=== PATIENT | male | born 1960 | race Caucasian/White ===

== ENCOUNTER → 2021-05-13 12:44 | Outpatient (CLI) | payer OTHER, SELFPAY ==
--- NOTE | ~2021-05-13 | CT_ITS ---
EXAMINATION: CT abdomen pelvis wo/w con DATE: 05/13/2021 13:42 INDICATION: Hematuria. TECHNIQUE: Computed tomography (CT) of the abdomen and pelvis was performed without and subsequently with 130 cc Omnipaque 350 intravenous contrast. Automated exposure control and iterative reconstructi on technique were employed. Exam dose: 1649.96 mGy-cm total exam DLP. COMPARISON: None. FINDINGS: Nonspecific 4 mm posterosuperior middle lobe nodule (series 4 image 1). Minimal bilateral dependent lower lobe atelectasis. Normal heart size. No pericardial or pleural effusion. Status post cholecystectomy. No hepatic, splenic, pancreatic or adrenal space-occupying mass lesion. No bile duct or pancreatic duct dilatation. No pancreatic calcification. 1.7 x 2 cm lateral lower pole left renal cyst with minimal wall calcification. Additional scattered s maller left renal cysts. There are 3 small nonobstructing right renal calculi, the largest measuring up to 4 mm. There are 2 nonobstructing left renal small calculi, measuring up to 3.4 mm. No ureteral calculus or hydroureteronephrosis. The urinary bladder is unremarkable. There is prostate enlargement and prominent calcification. There is atherosclerotic calcification of the abdominal aorta and iliac arteries but no abdominal aor tic aneurysm. No intraperitoneal or retroperitoneal or pelvic mass lesion or adenopathy or ascites is evident. Ther e are some shoddy nonenlarged right lower quadrant nodes measuring up to 7.5 x 9.5 mm. 3.7 x 4.8 cm distal duodenal diverticulum with fluid level. Approximately 6 cm segment of up to 4.3 cm dilated small bowel with air-fluid level is noted in the l eft lower quadrant, with sutures, suggesting this is an area of small bowel anastomosis. Mild colon diverticulosis; no CT evidence of diverticulitis. No evidence of appendicitis. No bowel ob struction, bowel wall thickening, pneumatosis or intraperitoneal free air. Wide umbilical hernia containing nonobstructed small bowel. Degenerative changes of the thoracic and lumbar spine including moderately prominent degenerative dis ease and minimal retrolisthesis at L4-5. IMPRESSION: Postoperative change of the small bowel; no bowel obstruction is evident Prominent distal duodenal diverticulum Mild colonic diverticulosis; no CT evidence of diverticulitis Bilateral nonobstructive nephrolithiasis; no ureteral calculus or hydroureteronephrosis Renal cysts Prominent prostate enlargement and calcification Reviewed, dictated and finalized at [facility]. Reviewed, dictated and finalized at [facility]. IMPRESSION: Postoperative change of the small bowel; no bowel obstruction is e vident Prominent distal duodenal diverticulum Mild colonic diverticulosis; no CT evidence of diverticulitis Bilateral nonobstructive nephrolithiasis; no ureteral calculus or hydroureteron ephrosis Renal cysts Prominent prostate enlargement and calcification
[2021-05-13 13:11] LABS: Estimated Glomerular Filt Rate > 60
== END ==
PROVIDERS: PCP Family Medicine; Visit Provider Family Medicine
DX: R31.9 Hematuria, unspecified (principal); K57.30 Diverticulosis of large intestine without perforation or abscess without bleeding; N20.0 Calculus of kidney; N28.1 Cyst of kidney, acquired; N40.0 Benign prostatic hyperplasia without lower urinary tract symptoms
CPT/HCPCS: 74178; Q9967

== ENCOUNTER → 2021-07-22 10:43 | Outpatient (CLI) | payer OTHER, SELFPAY ==
--- NOTE | ~2021-07-22 | US_ITS ---
EXAMINATION: US scrotum doppler DATE: 07/22/2021 11:19 INDICATION: Testicular pain, unspecified. TECHNIQUE: Grayscale and Doppler ultrasound images of the testes were obtained. COMPARISON: None. FINDINGS: The right testis measures 4.2 x 1.7 x 2.7 cm. The left testis measures 3.7 x 1.6 x 2.6 cm. There is normal vascular flow to both testes. The right epididymis demonstrates 1.3 cm and 0.7 cm cys ts. The left epididymis demonstrates a 0.8 cm cyst. There is no varicocele or hydrocele. IMPRESSION: 1. No etiology for the patient's symptoms. Reviewed, dictated and finalized at location [facility]. K OUT CLERK
== END ==
PROVIDERS: Visit Provider Internal Medicine
DX: N50.819 Testicular pain, unspecified (principal)
CPT/HCPCS: 76870; 93976

== ENCOUNTER → 2022-05-31 10:57 | Outpatient (CLI) | payer OTHER, SELFPAY ==
--- NOTE | ~2022-05-31 | XR_ITS ---
EXAM: XR cervical spine 4-5V DATE: 05/31/2022 11:19 HISTORY: Cervical radiculopathy . COMPARISON: None available. FINDINGS: Osteopenia. Craniocervical association and atlantoaxial joint are aligned. No prevertebral soft tissue swelling. Trace retrolistheses at C3-4 and C4-5, unchanged in flexion and extension. Tra ce anterolisthesis at C6-7, unchanged in flexion and extension. Vertebral body heights are maintained . Mild disc space narrowing in the mid cervical spine. Mild facet hypertrophy and sclerosis. IMPRESSION: Multilevel trace degenerative listheses. No dynamic listhesis detected. Multilevel mild d egenerative disc disease and facet arthropathy. Reviewed, dictated and finalized at location [facility]. E ENGINEER IMPRESSION: Multilevel trace degenerative listheses. No dynamic listhesis detec andrew. Multilevel mild degenerative disc disease and facet arthropathy.
== END ==
PROVIDERS: PCP Internal Medicine; Visit Provider Internal Medicine
DX: M50.13 Cervical disc disorder with radiculopathy, cervicothoracic region (principal)
CPT/HCPCS: 72050

== ENCOUNTER 2023-09-19 13:46 | Outpatient (CLI) | payer BC, SELFPAY ==
--- NOTE | ~2023-09-19 | XR_ITS ---
EXAMINATION: XR elbow RT min 3V DATE: 09/19/2023 14:08 INDICATION: Right elbow pain TECHNIQUE: 5 views of the right elbow were obtained. COMPARISON: None. FINDINGS: Alignment is normal. No fracture or joint effusion. Mild osteoarthritis at the ulnotrochlear articula tion. Soft tissues are unremarkable. IMPRESSION: 1. Mild osteoarthritis at the right elbow. No joint effusion or acute osseous abnormality. Reviewed, dictated and finalized at location B. IMPRESSION: 1. Mild osteoarthritis at the right elbow. No joint effusion or acute osseous a bnormality.
--- NOTE | ~2023-09-19 | XR_ITS ---
EXAMINATION: XR shoulder RT min 2V DATE: 09/19/2023 14:08 INDICATION: Right shoulder pain TECHNIQUE: AP internally and externally rotated, AP oblique externally rotated and transscapular Y vi ews of the right shoulder were obtained. COMPARISON: None FINDINGS: Normal alignment. No fracture.Mild glenohumeral osteoarthritis with mild nonuniform joint space narr owing and small marginal osteophytes along the posterior glenoid. Mild acromioclavicular osteoarthrit is with tiny inferiorly directed osteophytes. Soft tissues are unremarkable. Visualized portion of th e lungs are clear. IMPRESSION: Mild right hip and acromioclavicular osteoarthritis. Reviewed, dictated and finalized at location B.
== END 2023-09-19 13:47 ==
LOC: MICIMG 13:49
PROVIDERS: PCP Internal Medicine; Visit Provider Internal Medicine
DX: M25.521 Pain in right elbow (principal); M25.511 Pain in right shoulder; M19.021 Primary osteoarthritis, right elbow; M19.011 Primary osteoarthritis, right shoulder
CPT/HCPCS: 73030; 73080

== ENCOUNTER 2023-10-27 11:32 | Outpatient (CLI) | payer BC, SELFPAY ==
--- NOTE | ~2023-10-27 | MR_ITS ---
EXAMINATION: MR shoulder RT wo con DATE: 10/27/2023 12:44 INDICATION: Generalized right shoulder pain down arm ltd rom s/p pt . TECHNIQUE: Magnetic resonance imaging (MRI) of the right shoulder was performed without intravenous c ontrast. Sequences included axial PD-weighted FS FSE, coronal oblique PD-weighted FS FSE and T2-weigh andrew FS FSE, and sagittal oblique T2-weighted FS FSE and T1-weighted FSE. COMPARISON: X-ray right shoulder 09/19/2023. FINDINGS: Coracoacromial arch: Mild anterior downsloping of the type II acromion. Mild inferior AC joint osteophytosis and acromial tip enthesopathy. Mild subacromial narrowing. No subcoracoid narrowing. Rotator cuff: 11 mm AP full-thickness tear of the anterior fibers of the supraspinatus at their insertion, with 6 m m retraction. Mild supraspinatus atrophy. Infraspinatus teres minor and subscapularis are intact. Bur nam sided fraying. Biceps tendon and glenoid labrum: Long head of biceps tendon is intact. The glenoid labrum is intact. Fluid: Moderate subacromial subdeltoid fluid. Bones/cartilage: Mild AC joint hypertrophy. Mild glenohumeral cartilage thinning. IMPRESSION: 11 mm full-thickness tear of the anterior fibers of supraspinatus, with 6 mm retraction. Moderate subacromial subdeltoid bursitis with bursal sided fraying. Mild polyarticular osteoarthritis. Reviewed, dictated and finalized at location K. IMPRESSION: 11 mm full-thickness tear of the anterior fibers of supraspinatus, with 6 mm re traction. Moderate subacromial subdeltoid bursitis with bursal sided fraying. Mild polyarticular osteoarthritis.
== END 2023-10-27 11:33 ==
PROVIDERS: PCP Internal Medicine; Visit Provider Orthopaedic Surgery
DX: M19.011 Primary osteoarthritis, right shoulder (principal)
CPT/HCPCS: 73221